=== PATIENT | female | born 1945 | race Caucasian/White ===

== ENCOUNTER → 2016-06-28 | Outpatient (CLI) | payer MEDICARE, BC ==
[~2016-06-28] MED LIST: GADOBUTROL 10mMol/10ml INJECTION IV ONE; MELO7.5T12 PO; ONDA4TAB4 PO; OXYC1TAB8 PO; SALINE FLUSH 10ml SYRINGE ONE
[2016-06-28 09:05] LABS: CREATININE 0.7 MG/DL (0.7-1.2)
--- NOTE | 2016-06-28 13:10 | DI ---
EXAM: MRI CERVICAL SPINE W/WO CONTRA LOCATION OF DICTATION: [place] HISTORY: ITS.REASON: M54.2 CERVICALGIA; M25.511 PAIN IN RIGHT SHOULDER COMPARISON: No prior studies available for comparison. TECHNIQUE: Multiplanar, multisequence, cervical spine protocol MR imaging with and without contrast of the spine was acquired. FINDINGS: There is preservation of cervical lordosis without subluxation. No acute fractures are demonstrated. Normal signal is present throughout the vertebral bodies. The foramen magnum, subarachnoid space, and cervical spinal cord demonstrate no significant abnormality. There is mild loss of intervertebral disc space height and signal. The prevertebral and paraspinal soft tissues are without identified abnormality. Segmental analysis: At the C2-C3 level there is no significant spinal canal or foraminal compromise. At the C3-C4 level there is no significant spinal canal or foraminal compromise. At the C4-5 level there is mild central disc bulge with some effacement of the ventral thecal sac without significant central spinal or neuroforaminal stenosis. At the C5-C6 level there is a mild broad-based disc bulge without significant central spinal or neuroforaminal stenosis. At the C6-C7 level there is no significant spinal canal or foraminal compromise. At the C7-T1 level there is no significant spinal canal or foraminal compromise. There is no abnormal enhancement demonstrated. IMPRESSION: 1. Normal alignment to the cervical spine. No evidence for subluxation or fracture. 2. Mild degenerative disc disease without significant central spinal or neuroforaminal stenosis. 3. No abnormal enhancement or signal associated with the spinal canal/cord or vertebra. .
== END ==
LOC: IMA 08:27
PROVIDERS: ATTEND Physician Assistant Surgical
DX: M50.221 Other cervical disc displacement at C4-C5 level (principal); M50.222 Other cervical disc displacement at C5-C6 level; M25.511 Pain in right shoulder
CPT/HCPCS: 36415; 72156; 82565; A9585